=== PATIENT | female | born 1955 | race Caucasian/White ===

== ENCOUNTER 2020-06-16 08:05 | Emergency (ER) | payer SELFPAY ==
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
--- NOTE | 2020-06-16 08:09 | XR_ITS ---
WS: [id number] XR chest 1V portable [id number] REASON FOR EXAM: dyspnea/cough FINDINGS: Most recent examination for comparison 2008. Mild tortuosity of the thoracic aorta. Normal heart. Eventration of the right hemidiaphragm. Calcified granulomatous changes in both hemithoraces. Very small area of linear interstitial density in the left lung base more likely atelectasis or chron ic abnormality. XR/XR chest 1V portable [id number] IMPRESSION: No acute chest abnormality.
[2020-06-16 08:10] VITALS: RESP 20; TEMP 36.7; O2SAT 98
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
--- NOTE | 2020-06-16 08:45 | ECG_ITS ---
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 Measurements Intervals [place] Rate: 60 P: 38 AL: 154 QRS: 19 QRSD: 93 T: 11 QT: 409 QTc: 409 Interpretive Statements SINUS RHYTHM No previous ECG available for comparison Electronically Signed On 06-16-2020 20:02:14 RETAIL GIFT CARD MERCHANDISING by Nelli Flores M.D. [email or web address]
[2020-06-16 08:47] VITALS: BP 146/67; PULSE 67; RESP 18; O2SAT 97
[2020-06-16 09:02] LABS: Add Urine Microscopic? NO
[2020-06-16 09:09] LABS: Bilirubin Urine Neg (Negative); Blood Urine Neg (Negative); Glucose Urine UA Norm (Normal); Ketones Urine Negative (Negative); Leukocyte Esterase Urine Negative (Negative); Nitrate Urine Negative (Negative); Protein Urine Neg (Negative); Specific Gravity, Urine 1.015 (1.005-1.030); Urine Appearance Clear (CLEAR); Urine Color Yellow (Yellow); Urobilinogen Urine Norm (Negative); pH Urine 5 (5-7)
[2020-06-16 10:05] LABS: Basophils % 0.4 %; Eosinophils # 0.1 10^3/uL (0.0-0.8); Eosinophils % 1.3 %; Hematocrit 39.6 % (37.0-47.0); Hemoglobin 12.1 g/dL (11.5-15.3); Lymphocytes # 1.2 10^3/uL (0.8-4.8); Lymphocytes % 26.9 %; Mean Corpuscular HGB Conc 30.6 g/dL (30.0-36.0); Mean Corpuscular Hemoglobin 27.6 pg (28.0-34.0); Mean Corpuscular Volume 90.2 fL (81-99); Mean Platelet Volume 9.8 fL (7.4-10.4); Monocytes # 0.4 10^3/uL (0.2-0.9); Monocytes % 8.5 %; Neutrophils # 2.79 10^3/uL (1.8-7.7); Neutrophils % 62.7 %; Nucleated Red Blood Cells % 0 %; Platelet Count 150 10^3/cmm (130-400); Red Blood Count 4.39 10^6/uL (4.1-5.3); Red Cell Distribution Width 13.2 % (12.1-15.1); White Blood Count 4.5 10^3/uL (4.0-10.0)
[2020-06-16 10:19] LABS: Alanine Aminotransferase 18 U/L (0-33); Albumin Level 4.1 g/dL (3.5-5.2); Alkaline Phosphatase 72 IU/L (35-105); Anion Gap 12.3 (5-19); Aspartate Amino Transferase 17 U/L (0-32); Blood Urea Nitrogen 16 mg/dL (8-23); Calcium 8.9 mg/dL (8.5-10.5); Carbon Dioxide 25 mmol/L (22-29); Chloride 105 mmol/L (98-107); Creatinine Clr Calc Pharmacy 131.2714; Globulin 2.5 g/dL (1.3-4.6); Glomerular Filtration Rate 84.8 mL/min (90-130); Glucose 108 mg/dL (65-115); Osmolality Calculated 288 mOsm/kg (285-295); Potassium 4.3 mmol/L (3.5-5.1); Sodium 138 mmol/L (136-145); Total Bilirubin 0.4 mg/dL (0.15-1.2); Total Protein 6.6 g/dL (6.6-8.7)
[2020-06-16 11:21] VITALS: BP 181/112; PULSE 76; RESP 20; O2SAT 97
== END 2020-06-16 11:23 | disposition home or self-care (01) ==
PROVIDERS: Emergency Provider Family Medicine
DX: R07.89 Other chest pain (principal); V89.2XXA Person injured in unspecified motor-vehicle accident, traffic, initial encounter
CPT/HCPCS: 12345; 71045; 71250; 72040; 80053; 81003; 85025; 93005; 99281; 99283

== ENCOUNTER 2022-12-27 08:06 | Outpatient (CLI) | payer MEDICARE, SELFPAY ==
--- NOTE | 2022-12-27 08:23 | XR_ITS ---
WS: [email or web address] Exam: XR wrist LT 2V [id number] Date/Time of Exam: 12/27/2022 8:26 AM Reason For Exam: PAIN IN FINGERS OF BILATERAL HANDS No fracture or dislocation. Moderately advanced degenerative change at the CMC joint of the thumb. So ft tissues are unremarkable. XR/XR wrist LT 2V [id number] IMPRESSION: 1. No wrist fracture or other significant finding.
--- NOTE | 2022-12-27 08:23 | XR_ITS ---
WS: [email or web address] Exam: XR wrist RT 2V [id number] Date/Time of Exam: 12/27/2022 8:26 AM Reason For Exam: PAIN IN FINGERS OF BILATERAL HANDS No fracture or dislocation noted. Soft tissues are unremarkable. 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 XR/XR wrist RT 2V [id number] IMPRESSION: 1. No fracture or other significant finding.
--- NOTE | 2022-12-27 08:30 | XR_ITS ---
WS: [email or web address] Exam: XR hand LT 2V [id number] Date/Time of Exam: 12/27/2022 8:31 AM Reason For Exam: pain in left hand No fracture or dislocation. Mild degenerative changes in the IP and MP joints. Moderately advanced DJ D at the CMC joint of the thumb. Soft tissues are unremarkable. Possible old fracture deformity of th e distal index finger metacarpal. XR/XR hand LT 2V [id number] IMPRESSION: 1. Degenerative changes as noted above. 2. No acute fracture.
--- NOTE | 2022-12-27 08:30 | XR_ITS ---
WS: [email or web address] Exam: XR hand RT 2V [id number] Date/Time of Exam: 12/27/2022 8:31 AM Reason For Exam: pain in right hand No acute fracture or dislocation. Advanced joint destruction noted at the second the MP joint with ex tensive subcortical cyst formation and cortical erosions. There are also subcortical cysts with assoc iated soft tissue swelling at the PIP joint of the third finger. Mild degenerative changes in the rem aining IP joints. XR/XR hand RT 2V [id number] IMPRESSION: 1. Extensive the cortical erosions and subcortical cyst formation at the second the MP joint with almost complete destruction of the joint. There are also sub cortical cysts identified at the PIP joint of the third finger with significant soft tissue swelling. These findings are nonspecific but might indicate gouty arthritis. Additional degenerative changes in the IP joints. 2. No fracture.
== END 2022-12-27 08:07 | disposition home or self-care (01) ==
PROVIDERS: PCP Family Medicine; Visit Provider Family Medicine
DX: M19.042 Primary osteoarthritis, left hand (principal); M19.041 Primary osteoarthritis, right hand; M25.841 Other specified joint disorders, right hand; M20.092 Other deformity of left finger(s); M79.644 Pain in right finger(s); M79.645 Pain in left finger(s); M25.542 Pain in joints of left hand; M25.541 Pain in joints of right hand
CPT/HCPCS: 73100; 73120

== ENCOUNTER 2023-01-06 06:58 | Outpatient (CLI) | payer MEDICARE, MEDICAID, SELFPAY ==
--- NOTE | 2023-01-06 07:14 | CT_ITS ---
WS: [email or web address] LDCT LUNG CANCER SCREENING HISTORY: SCREENING FOR MALIGNANT NEOPLASM OF RESPIRATORY ORGANS TECHNIQUE: Axial imaging performed from the apices to 1 cm below the costophrenic angles. Coronal and sagittal reformats are submitted with axial MIP series. All CT scans at [facility] use at least one of these dose optimization techniques: automated exposure control; mA and/or kV adjustment per patient size (includes targeted exams where dose is matched to clinical indication); or iterativ e reconstruction. DLP: 107.71 mGy.cm DIvol: Mean CTDIvol: 2.60 (mGy) COMPARISON: 06/16/2020 Diagnostic quality: Satisfactory Lungs: Mild pulmonary hyperexpansion from emphysema. Groundglass nodule with irregular borders identi fied in the LEFT upper lobe measures 1.7 x 2.0 cm and extends over a length of 2.4 cm. This area of g roundglass attenuation was also on the study from 2019 but very small at that time and nonspecific. T here are a few additional scattered similar areas of groundglass attenuation bilaterally. No mass or nodule. Heart: Normal size heart with no pericardial effusion.. Other findings: Mild atherosclerosis aorta. No mediastinal or hilar adenopathy identified. Minimal co ronary artery calcification. Small hiatal hernia. Hepatic steatosis. CT/CT lung screening [id number] IMPRESSION: LUNG-RADS: 3-Probably Benign FOLLOW UP: 6 Month LDCT OTHER FINDINGS (S MODIFIER): None. Recommend 6 month follow-up of the groundglass nodule LEFT upper lobe. Typicall y a groundglass nodule less than 3 cm would be managed with a 12 month follow-u p. As this nodule has increased in size since 2019, a shorter interval follow- up of 6 months is recommended. Suspicious for low-grade neoplasm.
--- NOTE | 2023-01-06 07:29 | MM_ITS ---
WS: [email or web address] Bilateral screening 3D tomosynthesis digital mammogram, 01/06/2023 Clinical Data: SCREENING Comparison: None. Findings: The breast parenchymal pattern shows fat replacement. No spiculated masses or clustered calcification s are seen. There are no secondary signs of carcinoma. There are mole markers on the right breast. Th ere are small lymph nodes in both axilla. MM/[place] [id number] Impression: 1. Negative bilateral mammogram with no prior exam for review. 2. Recommend annual screening mammograms. BIRADS: 1-Negative FOLLOW UP: 1 Year Follow-up The CAD sample checker was used.
== END 2023-01-06 06:59 | disposition home or self-care (01) ==
PROVIDERS: PCP Family Medicine; Visit Provider Family Medicine
DX: Z12.31 Encounter for screening mammogram for malignant neoplasm of breast (principal); Z12.2 Encounter for screening for malignant neoplasm of respiratory organs; Z87.891 Personal history of nicotine dependence
CPT/HCPCS: 71271; 77063; 77067

== ENCOUNTER 2023-01-13 11:57 | Outpatient (CLI) | payer MEDICARE, MEDICAID, SELFPAY ==
--- NOTE | 2023-01-13 12:10 | XRR_ITS ---
PROCEDURE INFORMATION: Exam: XR Right Knee Exam date and time: 01/13/2023 12:27 PM Age: 67 years old Clinical indication: Pain; Knee; Bilateral; Additional info: Pain in right knee.No history of trauma or recent surgery is provided. TECHNIQUE: Imaging protocol: Radiologic exam of the right knee. 3image(s) are provided. Views: 3 views. COMPARISON: No relevant prior studies available of the right knee. Left knee report same day. FINDINGS: Bones/joints: Osseous alignment is maintained.No displaced fracture or dislocation is appreciated. There is a small to moderate amount of joint fluid present. There is some spurring of the patellar level. There is some multi compartmental spurring and narrowing demonstrated with patellofemoral and medial predominance. Soft tissues: No radiopaque foreign body or subcutaneous emphysema is appreciated. There is slight prominence of the soft tissues overall. XR/XR knee RT 3V* [id number] IMPRESSION: 1. Osseous alignment is maintained with some chronic multi compartmental degeneration present.No fracture or dislocation is appreciated. 2. There is slight soft tissue swelling and small to moderate amount of joint fluid present.
--- NOTE | 2023-01-13 12:10 | XR_ITS ---
WS: [email or web address] Left knee, 3 views, 01/13/2023 Clinical Data: PAIN IN LEFT KNEE Comparison: None. Findings: No fractures or dislocations are seen. There is medial joint compartment narrowing with spurs of the medial femoral condyle and medial tibial plateau.. The patella is intact with no spurring. The soft t issues are unremarkable. XR/XR knee LT 3V* [id number] Impression: Minimal medial joint compartment narrowing of the left knee Kellgren-Karan Classification: grade 1 (doubtful): doubtful joint space narr owing and possible osteophytic lipping
== END 2023-01-13 11:58 | disposition home or self-care (01) ==
LOC: RAD 11:59
PROVIDERS: PCP Family Medicine; Visit Provider Family Medicine
DX: M17.11 Unilateral primary osteoarthritis, right knee (principal); M79.89 Other specified soft tissue disorders; M25.562 Pain in left knee
CPT/HCPCS: 73562

== ENCOUNTER 2023-01-31 06:00 | Outpatient (CLI) | payer MEDICARE, MEDICAID, SELFPAY | END 2023-01-31 06:01 | disposition home or self-care (01) | LOC: SPT 02-15 09:14 | PROVIDERS: PCP Family Medicine; Visit Provider Student in an Organized Health Care Education/Training Program | DX: Z46.89 Encounter for fitting and adjustment of other specified devices (principal); M17.11 Unilateral primary osteoarthritis, right knee; M25.561 Pain in right knee | CPT/HCPCS: 97760; L1852 ==

== ENCOUNTER → 2023-02-14 11:04 | Outpatient (BNVA) | payer MEDICARE, MEDICAID, SELFPAY | PROVIDERS: PCP Family Medicine; Referring Provider Family Medicine; Visit Provider Student in an Organized Health Care Education/Training Program | DX: M17.11 Unilateral primary osteoarthritis, right knee | CPT/HCPCS: 73560; 73565; 99203 ==

== ENCOUNTER 2023-07-10 07:45 | Outpatient (CLI) | payer MEDICARE, MEDICAID, SELFPAY ==
--- NOTE | 2023-07-10 07:53 | CT_ITS ---
WS: [email or web address] CT CHEST TECHNIQUE: Contrast enhanced CT of the chest with coronal and sagittal reformatted images. CLINICAL INFORMATION: ABNORMAL FINDINGS ON DIAGNOSTIC IMAGING OF LUNG COMPARISON: CT 01/06/2023 and 06/16/2020 DLP: 571.[address] scans at [facility] use at least one of these dose optimization techniques: automated e xposure control; mA and/or kV adjustment per patient size (includes targeted exams where dose is matc hed to clinical indication); or iterative reconstruction. FINDINGS: Previously described 1.7 x 1.9 cm hazy groundglass opacity in the LEFT upper lobe is unchanged since 01/06/2023. Recommend continued surveillance with 6-month follow-up. Additional previously described subcentimeter nodules and small hazy opacities are unchanged. No foca l consolidation or pleural fluid. Proximal main pulmonary arteries are normal. Normal caliber thoraci c aorta. Aortic calcification. Stable LEFT adrenal adenoma measuring 2.2 cm. Tiny RIGHT adrenal adeno ma. Partially visualized hepatomegaly and splenomegaly. Spleen measures 15.1 cm in [id number] signi ficantly enlarged. Recommend clinical correlation. No mediastinal or hilar lymphadenopathy. No axillary lymphadenopathy. Moderate chronic emphysematous changes. IMPRESSION: 1. Previously described 1.7 x 1.9 cm hazy groundglass opacity in the LEFT upper lobe is unchanged s zee 01/06/2023. Recommend continued surveillance with 6-month follow-up. 2. Prominent splenomegaly. Recommend clinical correlation. 3. No other significant changes compared to previous.
[2023-07-10] MEDS: iohexol 350 mg/mL 100 mL Btl IV (08:54)
[2023-07-10 09:06] LABS: Blood Urea Nitrogen 15 mg/dL (8-23)
== END 2023-07-10 07:46 | disposition home or self-care (01) ==
LOC: RAD 07:46
PROVIDERS: PCP Family Medicine; Visit Provider Nurse Practitioner Family
DX: R91.8 Other nonspecific abnormal finding of lung field (principal); R16.1 Splenomegaly, not elsewhere classified
CPT/HCPCS: 71260; 82565; 84520; Q9967

== ENCOUNTER → 2023-07-18 08:43 | Outpatient (BNVA) | payer MEDICARE, MEDICAID, SELFPAY | PROVIDERS: PCP Family Medicine; Visit Provider Internal Medicine Rheumatology | DX: M05.79 Rheumatoid arthritis with rheumatoid factor of multiple sites without organ or systems involvement (principal); Z79.899 Other long term (current) drug therapy; Z71.85 Encounter for immunization safety counseling; M15.9 Polyosteoarthritis, unspecified | CPT/HCPCS: 99204 ==

== ENCOUNTER 2023-08-01 06:01 | Outpatient (CLI) | payer MEDICARE, MEDICAID, SELFPAY ==
--- NOTE | 2023-08-01 | US_ITS ---
WS: [email or web address] Complete ABDOMINAL ULTRASOUND HISTORY: Hepatosplenomegaly. COMPARISON: None available. Liver: 22.1 cm in length. Moderately enlarged liver with mild coarse echotexture. No mass or bile hollie t dilatation. Portal Vein: Normal hepatopetal flow with monophasic waveform. Gallbladder: Normally distended gallbladder with no stones or wall thickening. CBD: 0.3 cm Pancreas: Partially obscured. The entire head and distal tail are not visualized. Right kidney: 12.3 cm x 4.0 x 5.3 cm. Cortex:1.2 cm. Normal size and echogenicity. No hydronephrosis or mass. Left kidney: 11.3 cm x 5.0 cm x 3.7 cm. Cortex: 1.2 cm. Normal size and echogenicity. No hydronephrosis or mass. Spleen: 12.4 cm in length. Top normal size. Aorta and IVC: Unremarkable abdominal aorta and IVC. Impression: 1. Mildly contracted gallbladder. May be due to nonfasting state. No stones are identified and no Mu rphy's sign. 2. Moderate hepatomegaly with mild steatosis. 3. Spleen is top normal size. No renal obstruction.
== END 2023-08-01 06:02 | disposition home or self-care (01) ==
LOC: RAD 06:02
PROVIDERS: PCP Family Medicine; Visit Provider Family Medicine
DX: R16.2 Hepatomegaly with splenomegaly, not elsewhere classified (principal); K82.9 Disease of gallbladder, unspecified; K76.0 Fatty (change of) liver, not elsewhere classified
CPT/HCPCS: 76700

== ENCOUNTER 2023-08-01 06:29 | Outpatient (CLI) | payer MEDICARE, MEDICAID, SELFPAY ==
[2023-08-01 06:44] LABS: Basophils % 0.2 %; Eosinophils # 0.1 10^3/uL (0.0-0.8); Eosinophils % 0.7 %; Hematocrit 41.1 % (36-47); Lymphocytes # 2.1 10^3/uL (0.8-4.8); Mean Corpuscular HGB Conc 30.2 g/dL (30-55); Mean Corpuscular Hemoglobin 25.5 pg (27-33); Mean Corpuscular Volume 84.6 fl (85-98); Mean Platelet Volume 9.9 fL (7.4-10.4); Monocytes # 0.8 10^3/uL (0.2-0.9); Monocytes % 7.5 %; Neutrophils # 7.38 10^3/uL (1.8-7.7); Neutrophils % 71.1 %; Nucleated Red Blood Cells % 0 %; Platelet Count 200 10^3/cmm (157-399); Red Blood Count 4.86 10^6/uL (3.85-5.65); Red Cell Distribution Width 17.3 % (12.1-15.1); White Blood Count 10.38 10^3/uL (3.29-11.43)
[2023-08-01 07:07] LABS: Alanine Aminotransferase 20 U/L (0-33); Albumin Level 3.8 g/dL (3.5-5.2); Alkaline Phosphatase 67 U/L (35-105); Aspartate Amino Transferase 15 U/L (0-32); C Reactive Protein 5.3 mg/L (0.0-4.9); Globulin 2.9 g/dL (1.3-4.6); Total Bilirubin 0.2 mg/dL (0.15-1.2); Total Protein 6.7 g/dL (6.6-8.7)
== END 2023-08-01 06:30 | disposition home or self-care (01) ==
LOC: LAB 06:30
PROVIDERS: PCP Family Medicine; Visit Provider Internal Medicine Rheumatology
DX: Z79.899 Other long term (current) drug therapy (principal); M05.79 Rheumatoid arthritis with rheumatoid factor of multiple sites without organ or systems involvement
CPT/HCPCS: 36415; 80076; 82565; 85025; 86140

== ENCOUNTER 2023-09-01 06:21 | Outpatient (CLI) | payer MEDICARE, MEDICAID, SELFPAY ==
[2023-09-01 07:06] LABS: Basophils % 0.5 %; Eosinophils # 0.1 10^3/uL (0.0-0.8); Eosinophils % 1.1 %; Hematocrit 43.6 % (36-47); Lymphocytes # 1.1 10^3/uL (0.8-4.8); Lymphocytes % 19.7 %; Mean Corpuscular HGB Conc 30.7 g/dL (30-55); Mean Corpuscular Hemoglobin 26.5 pg (27-33); Mean Corpuscular Volume 86.2 fl (85-98); Mean Platelet Volume 9.9 fL (7.4-10.4); Monocytes # 0.8 10^3/uL (0.2-0.9); Monocytes % 13.7 %; Neutrophils # 3.59 10^3/uL (1.8-7.7); Neutrophils % 64.8 %; Nucleated Red Blood Cells % 0 %; Platelet Count 182 10^3/cmm (157-399); Red Blood Count 5.06 10^6/uL (3.85-5.65); Red Cell Distribution Width 15.9 % (12.1-15.1); White Blood Count 5.54 10^3/uL (3.29-11.43)
[2023-09-01 07:15] LABS: Alanine Aminotransferase 16 U/L (0-33); Alkaline Phosphatase 73 U/L (35-105); Aspartate Amino Transferase 17 U/L (0-32); C Reactive Protein 3.2 mg/L (0.0-4.9); Globulin 2.6 g/dL (1.3-4.6); Glomerular Filtration Rate 100.3 mL/min (90-130); Total Bilirubin 0.4 mg/dL (0.15-1.2); Total Protein 6.6 g/dL (6.6-8.7)
[2023-09-01 08:43] LABS: Hepatitis B Core AB, Total Reactive (Nonreactive); Hepatitis B Surface Antigen Non-Reactive (Nonreactive); Hepatitis C Virus Antibody Non-Reactive (Nonreactive)
[2023-09-04 14:34] LABS: Cyclic Citrullinated Peptide 46 UNITS
[2023-09-05 13:24] LABS: Quantiferon Mitogen 8.61 IU/mL; Quantiferon Nil 0.04 IU/mL; Quantiferon Plus TB2 0.04 IU/mL; Quantiferon TB Gold NEGATIVE (NEGATIVE)
== END 2023-09-01 06:22 | disposition home or self-care (01) ==
LOC: LAB 06:22
PROVIDERS: PCP Family Medicine; Visit Provider Internal Medicine Rheumatology
DX: M05.79 Rheumatoid arthritis with rheumatoid factor of multiple sites without organ or systems involvement (principal); Z79.899 Other long term (current) drug therapy
CPT/HCPCS: 36415; 80076; 82565; 85025; 86140; 86200; 86480; 86704; 86803; 87340

== ENCOUNTER 2023-10-05 06:21 | Outpatient (CLI) | payer MEDICARE, MEDICAID, SELFPAY ==
[2023-10-05 06:51] LABS: Basophils % 0.3 %; Eosinophils # 0.1 10^3/uL (0.0-0.8); Eosinophils % 2.3 %; Hematocrit 41.6 % (36-47); Lymphocytes # 1.1 10^3/uL (0.8-4.8); Lymphocytes % 19.2 %; Mean Corpuscular HGB Conc 31.3 g/dL (30-55); Mean Corpuscular Volume 86.5 fl (85-98); Mean Platelet Volume 9.4 fL (7.4-10.4); Monocytes # 0.6 10^3/uL (0.2-0.9); Monocytes % 10.8 %; Neutrophils # 3.85 10^3/uL (1.8-7.7); Neutrophils % 67.1 %; Nucleated Red Blood Cells % 0 %; Platelet Count 162 10^3/cmm (157-399); Red Blood Count 4.81 10^6/uL (3.85-5.65); Red Cell Distribution Width 15.8 % (12.1-15.1); White Blood Count 5.74 10^3/uL (3.29-11.43)
[2023-10-05 07:11] LABS: Alanine Aminotransferase 19 U/L (0-33); Alkaline Phosphatase 83 U/L (35-105); Aspartate Amino Transferase 18 U/L (0-32); C Reactive Protein 5.7 mg/L (0.0-4.9); Globulin 2.4 g/dL (1.3-4.6); Glomerular Filtration Rate 83.7 mL/min (90-130); Total Bilirubin 0.3 mg/dL (0.15-1.2); Total Protein 6.4 g/dL (6.6-8.7)
[2023-10-10 14:58] LABS: Hepatitis B Virus DNA NOT DETECTED (NOT DETECTED); Hepatitis B Virus DNA PCR NOT DETECTED Log IU/mL (NOT DETECTED)
== END 2023-10-05 06:22 | disposition home or self-care (01) ==
PROVIDERS: PCP Family Medicine; Visit Provider Internal Medicine Rheumatology
DX: M05.79 Rheumatoid arthritis with rheumatoid factor of multiple sites without organ or systems involvement (principal); R76.8 Other specified abnormal immunological findings in serum; Z79.899 Other long term (current) drug therapy
CPT/HCPCS: 36415; 80076; 82565; 85025; 86140; 87517

== ENCOUNTER 2023-10-16 12:47 | Outpatient (CLI) | payer MEDICARE, MEDICAID, SELFPAY ==
--- NOTE | 2023-10-16 12:51 | XR_ITS ---
WS: [email or web address] SCREENING DEXA SCAN [employer] CLINICAL INFORMATION: SCREENING FOR OSTEOPOROSIS COMPARISON: None. FINDINGS: The L1-L4 bone mineral density measures 1.05. This corresponds to a T score score of -1.2 and Z score of -0.8. Left femoral neck bone mineral density measures 0.902 g/cm2. This corresponds to a T score of -0.8 an d Z score of -0.4. Right femoral neck bone mineral density measures 0.877 g/cm2. This corresponds to a T score -1.0of an d Z score of -0.6. Mean femoral neck bone mineral density measures 0.890 g/cm2. This corresponds to a T score of -0.9 an d Z score of -0.5. IMPRESSION: Osteopenia lumbar spine. Normal bone mineralization approaching osteopenia femoral necks. Patient's FRAX calculated 10 year probability for major osteoporotic fracture is 9.6% and osteoporoti c hip fracture is 0.7%.
== END 2023-10-16 12:48 | disposition home or self-care (01) ==
LOC: RAD 12:49
PROVIDERS: PCP Family Medicine; Visit Provider Family Medicine
DX: Z78.0 Asymptomatic menopausal state (principal); Z13.820 Encounter for screening for osteoporosis; M85.88 Other specified disorders of bone density and structure, other site
CPT/HCPCS: 77080

== ENCOUNTER → 2023-10-26 09:13 | Outpatient (BNVA) | payer MEDICARE, MEDICAID, SELFPAY | PROVIDERS: PCP Family Medicine; Visit Provider Internal Medicine Rheumatology | DX: Z79.899 Other long term (current) drug therapy (principal); M05.79 Rheumatoid arthritis with rheumatoid factor of multiple sites without organ or systems involvement; Z71.85 Encounter for immunization safety counseling; M15.9 Polyosteoarthritis, unspecified | CPT/HCPCS: 99214 ==

== ENCOUNTER 2023-12-01 06:33 | Outpatient (CLI) | payer MEDICARE, MEDICAID, SELFPAY ==
[2023-12-01 06:56] LABS: Basophils % 0.5 %; Eosinophils # 0.1 10^3/uL (0.0-0.8); Eosinophils % 1.3 %; Hematocrit 39.5 % (36-47); Lymphocytes # 1.1 10^3/uL (0.8-4.8); Lymphocytes % 19.5 %; Mean Corpuscular HGB Conc 31.6 g/dL (30-55); Mean Corpuscular Hemoglobin 28.7 pg (27-33); Mean Corpuscular Volume 90.6 fl (85-98); Mean Platelet Volume 9.4 fL (7.4-10.4); Monocytes # 0.3 10^3/uL (0.2-0.9); Neutrophils # 3.99 10^3/uL (1.8-7.7); Neutrophils % 72.5 %; Nucleated Red Blood Cells % 0 %; Platelet Count 158 10^3/cmm (157-399); Red Blood Count 4.36 10^6/uL (3.85-5.65); Red Cell Distribution Width 16.6 % (12.1-15.1)
[2023-12-01 07:06] LABS: Alanine Aminotransferase 35 U/L (0-33); Albumin Level 4.1 g/dL (3.5-5.2); Alkaline Phosphatase 78 U/L (35-105); Aspartate Amino Transferase 29 U/L (0-32); C Reactive Protein 15.9 mg/L (0.0-4.9); Globulin 2.8 g/dL (1.3-4.6); Glomerular Filtration Rate 83.7 mL/min (90-130); Total Bilirubin 0.7 mg/dL (0.15-1.2); Total Protein 6.9 g/dL (6.6-8.7)
== END 2023-12-01 06:34 | disposition home or self-care (01) ==
LOC: LAB 06:34
PROVIDERS: PCP Family Medicine; Visit Provider Internal Medicine Rheumatology
DX: Z79.899 Other long term (current) drug therapy (principal); M05.79 Rheumatoid arthritis with rheumatoid factor of multiple sites without organ or systems involvement
CPT/HCPCS: 36415; 80076; 82565; 85025; 86140

== ENCOUNTER 2024-01-15 14:58 | Outpatient (CLI) | payer MEDICARE, MEDICAID, SELFPAY ==
--- NOTE | 2024-01-15 15:02 | CT_ITS ---
WS: [email or web address] CT chest wo con [id number] HISTORY: LUNG NODULE TECHNIQUE: Axial imaging performed through the thorax. Coronal and sagittal reformats are submitted. All CT scans at [facility] use at least one of these dose optimization techniques: automated exposure control; mA and/or kV adjustment per patient size (includes targeted exams where dose is mat ched to clinical indication); or iterative reconstruction. CONTRAST: None DLP: 568.57 mGy.cm COMPARISON: 01/06/2023, 07/10/2023 Lungs and central airway: Reidentified is a groundglass nodule measuring 1.6 x 1.9 cm in the posterio r LEFT upper lobe which is increased in size since 2019 but stable since the most recent studies. The re are a few additional very small, subcentimeter areas of hazy groundglass attenuation throughout th e RIGHT lung which are stable. There are a few scattered granulomata. Pleura: Normal. No pleural effusion. Heart and pericardium: Normal size heart with no pericardial effusion. Mediastinum and yong: No mediastinum or hilar adenopathy. Vessels: Mild atherosclerosis aorta. Normal size pulmonary artery. Chest wall and lower neck: No soft tissue masses. Upper abdomen: Long-term stability well circumscribed 2.7 x 2.3 cm mass associated with the LEFT adre nal gland. Spleen is not included in its entirety. Osseous structures: Increase in thoracic kyphosis. CT/CT chest wo con [id number] IMPRESSION: 1. No interval change in the groundglass nodule LEFT upper lobe since 01/06/2023 . Recommend continued close follow-up. Low-grade neoplasm needs to be considere d. Recommend follow-up noncontrast chest CT in 12 months. 2. Reidentified LEFT adrenal mass, unchanged since 2019. 3. Additional very small subcentimeter areas of groundglass attenuation throug hout the RIGHT lung can also be reevaluated in 12 months.
== END 2024-01-15 14:59 | disposition home or self-care (01) ==
LOC: RAD 14:59
PROVIDERS: PCP Family Medicine; Visit Provider Family Medicine
DX: R91.8 Other nonspecific abnormal finding of lung field (principal); D35.00 Benign neoplasm of unspecified adrenal gland; M40.204 Unspecified kyphosis, thoracic region
CPT/HCPCS: 71250

== ENCOUNTER 2024-03-06 06:18 | Outpatient (CLI) | payer MEDICARE, MEDICAID, SELFPAY ==
[2024-03-06 06:43] LABS: Basophils # 0.1 10^3/uL (0.0-0.1); Eosinophils # 0.1 10^3/uL (0.0-0.8); Eosinophils % 2.5 %; Hematocrit 35.5 % (36-47); Lymphocytes # 1.5 10^3/uL (0.8-4.8); Lymphocytes % 29.1 %; Mean Corpuscular Hemoglobin 28.1 pg (27-33); Mean Corpuscular Volume 90.8 fl (85-98); Monocytes # 0.8 10^3/uL (0.2-0.9); Monocytes % 16.2 %; Neutrophils % 50.8 %; Nucleated Red Blood Cells % 0 %; Platelet Count 131 10^3/cmm (157-399); Red Blood Count 3.91 10^6/uL (3.85-5.65); Red Cell Distribution Width 16.5 % (12.1-15.1); White Blood Count 5.12 10^3/uL (3.29-11.43)
[2024-03-06 07:03] LABS: Alanine Aminotransferase 15 U/L (0-33); Alkaline Phosphatase 88 U/L (35-105); Aspartate Amino Transferase 15 U/L (0-32); C Reactive Protein 25.9 mg/L (0.0-4.9); Globulin 2.1 g/dL (1.3-4.6); Glomerular Filtration Rate 71.8 mL/min (90-130); Total Bilirubin 0.3 mg/dL (0.15-1.2); Total Protein 6.1 g/dL (6.6-8.7)
== END 2024-03-06 06:19 | disposition home or self-care (01) ==
PROVIDERS: PCP Family Medicine; Visit Provider Internal Medicine Rheumatology
DX: Z79.899 Other long term (current) drug therapy (principal); M05.79 Rheumatoid arthritis with rheumatoid factor of multiple sites without organ or systems involvement
CPT/HCPCS: 36415; 80076; 82565; 85025; 86140

== ENCOUNTER → 2024-03-14 09:10 | Outpatient (BNVA) | payer MEDICARE, MEDICAID, SELFPAY | PROVIDERS: PCP Family Medicine; Visit Provider Internal Medicine Rheumatology | DX: M05.79 Rheumatoid arthritis with rheumatoid factor of multiple sites without organ or systems involvement (principal); Z79.899 Other long term (current) drug therapy; Z71.85 Encounter for immunization safety counseling; M15.9 Polyosteoarthritis, unspecified; Z11.1 Encounter for screening for respiratory tuberculosis; Z11.59 Encounter for screening for other viral diseases | CPT/HCPCS: 36415; 85025; 99214 ==

== ENCOUNTER 2024-03-19 08:51 | Outpatient (CLI) | payer MEDICARE, MEDICAID, SELFPAY | END 2024-03-19 08:52 | disposition home or self-care (01) | PROVIDERS: PCP Family Medicine; Visit Provider Internal Medicine Rheumatology | DX: K92.1 Melena (principal) | CPT/HCPCS: 82274 ==

== ENCOUNTER 2024-05-28 06:35 | Outpatient (CLI) | payer MEDICARE, SELFPAY ==
[2024-05-28 07:35] LABS: Basophils % 0.9 %; Eosinophils # 0.1 10^3/uL (0.0-0.8); Eosinophils % 3.2 %; Hematocrit 32.5 % (36-47); Lymphocytes % 22.2 %; Mean Corpuscular HGB Conc 30.8 g/dL (30-55); Mean Corpuscular Hemoglobin 25.4 pg (27-33); Mean Corpuscular Volume 82.7 fl (85-98); Mean Platelet Volume 9.8 fL (7.4-10.4); Monocytes # 0.8 10^3/uL (0.2-0.9); Monocytes % 17.4 %; Neutrophils # 2.44 10^3/uL (1.8-7.7); Neutrophils % 55.8 %; Nucleated Red Blood Cells % 0 %; Platelet Count 144 10^3/cmm (157-399); Red Blood Count 3.93 10^6/uL (3.85-5.65); Red Cell Distribution Width 18.4 % (12.1-15.1); White Blood Count 4.37 10^3/uL (3.29-11.43)
[2024-05-28 07:53] LABS: Alanine Aminotransferase 20 U/L (0-33); Albumin Level 3.6 g/dL (3.5-5.2); Alkaline Phosphatase 74 U/L (35-105); Aspartate Amino Transferase 22 U/L (0-32); C Reactive Protein 30.4 mg/L (0.0-4.9); Globulin 2.4 g/dL (1.3-4.6); Glomerular Filtration Rate 83.7 mL/min (90-130); Total Bilirubin 0.4 mg/dL (0.15-1.2)
[2024-05-28 07:57] LABS: Erythrocyte Sedimentation Rate 33 mm/hr (0-15)
== END 2024-05-28 06:36 | disposition home or self-care (01) ==
LOC: LAB 06:38
PROVIDERS: Internal Medicine Rheumatology; PCP Family Medicine; Visit Provider Family Medicine
DX: M05.79 Rheumatoid arthritis with rheumatoid factor of multiple sites without organ or systems involvement (principal); Z79.899 Other long term (current) drug therapy
CPT/HCPCS: 36415; 80076; 82565; 85025; 85651; 86140

== ENCOUNTER 2024-07-24 07:50 | Outpatient (CLI) | payer MEDICARE, MEDICAID, SELFPAY ==
--- NOTE | 2024-07-24 07:56 | MM_ITS ---
WS: [email or web address] BILATERAL SCREENING DIGITAL TOMOSYNTHESIS MAMMOGRAM WITH CAD HISTORY: SCREENING COMPARISON: 01/06/2023 Bilateral CC and MLO views with tomosynthesis and synthetic mammography submitted. Computer aided det ection analyzed. Breast composition: The breasts are almost entirely fatty. No suspicious masses, microcalcifications or architectural distortion. MM/MM scr BI tomosynthesis [id number] IMPRESSION: BI-RADS: 1 - Negative. FOLLOW UP: 1 Year Follow-up
== END 2024-07-24 07:51 | disposition home or self-care (01) ==
LOC: RAD 07:53
PROVIDERS: PCP Family Medicine; Visit Provider Family Medicine
DX: Z12.31 Encounter for screening mammogram for malignant neoplasm of breast (principal); R92.313 Mammographic fatty tissue density, bilateral breasts
CPT/HCPCS: 77063; 77067

== ENCOUNTER → 2024-07-25 10:25 | Outpatient (BNVA) | payer MEDICARE, MEDICAID, SELFPAY | PROVIDERS: PCP Family Medicine; Visit Provider Internal Medicine Rheumatology | DX: M05.79 Rheumatoid arthritis with rheumatoid factor of multiple sites without organ or systems involvement (principal); Z79.899 Other long term (current) drug therapy; Z71.85 Encounter for immunization safety counseling; M15.9 Polyosteoarthritis, unspecified | CPT/HCPCS: 36415; 85025; 99214 ==

== ENCOUNTER 2024-08-02 16:07 | Emergency (ER) | payer MEDICARE, MEDICAID, SELFPAY ==
--- NOTE | 2024-08-02 16:12 | USR_ITS ---
PROCEDURE INFORMATION: Exam: US Abdomen, Limited; Right Upper Quadrant Exam date and time: 08/02/2024 4:39 PM Age: 68 years old Clinical indication: Abdominal pain; Generalized; Additional info: Gallbladder, liver, ruq pain, probable cirrhosis TECHNIQUE: Imaging protocol: Real time ultrasound of the abdomen with image documentation. Limited exam focused on the right upper quadrant. COMPARISON: US abdomen complete* [id number] 08/01/2023 6:19 AM FINDINGS: Liver: Interval development of a nodular contour of the liver with increasingly heterogenous echotexture throughout the liver, suspicious for cirrhotic changes. Echotexture may be due to fatty infiltration and/or hepatocellular disease. Underlying hepatic lesions can not be ruled out. Marked hepatomegaly, the liver has increased in size and now measures 30.1 cm in length, previously measured 22.1 cm. Gallbladder: The gallbladder is contracted. This may be due to a postprandial state. No pericholecystic fluid. Biliary ducts: No biliary ductal dilatation. Pancreas: The pancreas was not visualized due to overlying bowel gas. Right kidney: The right kidney is unremarkable. Portal venous: Hepatopetal flow in the portal vein. Portal vein velocity measures 12.3 cm however, which is below normal. Intraperitoneal space: No ascites. US/US abdomen limited [id number] IMPRESSION: 1. Marked hepatomegaly, the liver has increased in size. Interval development of a nodular contour of the liver with increasingly heterogenous echotexture throughout the liver, suspicious for cirrhotic changes. Echotexture may be due to fatty infiltration and/or hepatocellular disease. Underlying hepatic lesions can not be ruled out. Recommend clinical correlation. 2. Hepatopetal flow in the portal vein. Portal vein velocity measures 12.3 cm however, which is below normal. 3. The pancreas was not visualized due to overlying bowel gas.
[2024-08-02 16:13] VITALS: BP 156/85; PULSE 95; RESP 18; TEMP 36.4; O2SAT 94; BMI 27.3
--- NOTE | 2024-08-02 16:13 | XRR_ITS ---
PROCEDURE INFORMATION: Exam: XR Chest Exam date and time: 08/02/2024 4:21 PM Age: 68 years old Clinical indication: Shortness of breath; SOB; Diapheretic TECHNIQUE: Imaging protocol: Radiologic exam of the chest. Views: 1 view. COMPARISON: CT chest con [id number] 01/15/2024 3:06 PM FINDINGS: Lungs: Interval development of mild elevation of the right hemidiaphragm. Interval development of a right suprahilar mass with associated postobstructive atelectasis/pneumonia in the right upper lobe. Stable small granuloma in the left upper lobe. Pleural spaces: No pleural effusion. No pneumothorax. Heart/Mediastinum: The cardiac silhouette and mediastinal contours are unremarkable. Bones/joints: Unremarkable for age. XR/XR chest 1V portable [id number] IMPRESSION: 1. Interval development of a right suprahilar mass with associated postobstructive atelectasis/pneumonia in the right upper lobe. CT scan of the chest with contrast is recommended for further evaluation. 2. Incidental/nonacute findings are listed in the report. COMMENTS: Urgent results were discussed with DARYA Castelan on 08/02/2024 at 5:03 PM THERAPY TECH.
--- NOTE | 2024-08-02 16:14 | ECG_ITS ---
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 Measurements Intervals [place] Rate: 95 P: 41 WA: 112 QRS: 38 QRSD: 93 T: 62 QT: 349 QTc: 439 Interpretive Statements SINUS RHYTHM WITH SHORT WA INTERVAL Compared to ECG 06/16/2020 08:17:52 Short WA interval now present Electronically Signed On 08-03-2024 13:18:21 SENIOR QUALITY ENGINEER by Beau Mcdonald M.D. [email or web address]
--- NOTE | 2024-08-02 16:18 | ED_ITS ---
HPI - Abdominal Pain 2 General: Chief Complaint: Abdominal Pain Stated Complaint: abdominal pain w/distention Time Seen by Provider: 08/02/24 16:08 History of Present Illness: 68-year-old female with a history of hyp ertension, diabetes and obesity who presents emergency room by ambulance with worsening shortness of breath, abdominal pain and swelling. She is noticed some swelling in her abdomen for some time now. She said she felt a pop in her right upper quadrant the other day and that is when the pain started and breathing got worse. She appears jaundiced on exam. Abdomen is very distended. She says she feels short of breath. She says this is all new. No known liver illness. Related Data Home Medications Medication Instructions Recorded Confirmed acetaminophen 650 mg 650 mg PO Q12H 02/14/23 08/02/24 tablet,extended release (Tylenol Arthritis Pain) marijuana See Rx Instructions .Route .COMPLEX 02/14/23 08/02/24 melatonin 12 mg tablet 12 mg PO QPM 02/14/23 08/02/24 vitamin with calcium 1 tab PO DAILY 08/02/24 08/02/24 no.72-iron 27 mg-folic acid 1 mg tablet ( Vitamins Plus Low Iron) Previous Rx's Medication Instructions Recorded director of guidance in public [employer] brace right #1 ea 02/14/23 folic acid 1 mg tablet 1 mg PO DAILY #90 tabs 07/25/24 methotrexate sodium 2.5 mg tablet See Rx Instructions PO Q7D #150 07/25/24 tabs prednisone 20 mg tablet See Rx Instructions .Route 07/25/24 .COMPLEX #30 tabs Allergies Allergy/AdvReac Type Severity Reaction Status Date / Time sulfasalazine Allergy Unknown lower Verified 07/25/24 10:40 extremity weakness Review of Systems 2 Narrative: Constitutional symptoms: Negative except as documented in HPI. Skin symptoms: Negative except as documented in HPI. Eye symptoms: Negative except as documented in HPI. ENMT symptoms: Negative except as documented in HPI. Respiratory symptoms: Negative except as documented in HPI. Cardiovascular symptoms: Negative except as documented in HPI. Gastrointestinal symptoms: Negative except as documented in HPI. Genitourinary symptoms: Negative except as documented in HPI. Musculoskeletal symptoms: Negative except as documented in HPI. Neurologic symptoms: Negative except as documented in HPI. Psychiatric symptoms: Negative except as documented in HPI. Endocrine symptoms: Negative except as documented in HPI. PFSH ED 2 PFSH: Medical History Essential hypertension controlled now no meds Osteoarthritis, generalized Immunization counseling High risk medication use Seropositive rheumatoid arthritis of multiple sites Surgical History H/O: hysterectomy Family History Other CAD (coronary artery disease) Cancer Diabetes Heart disease Hyperlipidemia Hypertension Lupus (systemic lupus erythematosus) Denies family history of Rheumatoid arthritis Chronic kidney disease (CKD) Social History Smoking and tobacco/nicotine status: former use of tobacco/nicotine Alcohol intake: never Physical Exam 2 Narrative: EXAM NARRATIVE: General: Alert, no acute distress. Skin: Warm, dry. Head: Normocephalic, appears jaundice Neck: Supple, trachea midline. Eye: Extraocular movements are intact. Ears, nose, mouth and throat: mucosa moist. Cardiovascular: Regular, Normal peripheral perfusion. Respiratory: Lungs are clear to auscultation, respirations are non-labored, breath sounds are equal, Symmetrical chest wall expansion. Gastrointestinal: Abdomen is fairly tight, very distended, diffusely tender but more in the right upper quadrant Musculoskeletal: Normal ROM, no deformity. Neurological: Alert and oriented, No focal neurological deficit observed. Psychiatric: Cooperative, appropriate mood & affect. Course 2 Vital Signs: Vital signs: Vital Signs Temperature 97.6 F 08/02/24 16:13 Pulse Rate 92 08/02/24 19:09 Respiratory Rate 16 08/02/24 19:09 Blood Pressure 139/70 08/02/24 19:09 Pulse Oximetry 93 08/02/24 19:09 Oxygen Delivery Me thod Room Air 08/02/24 16:13 MDM - Abdominal Pain Medical Decision Making Medical decision making: Differential diagnosis including but not limited to and based on the above HPI, review of systems and physical exam: In this patient with abdominal distention and shortness of breath would have concern for pneumonia, she also appears jaundiced so I have concern for liver issues. Cirrhosis. With long and abdominal symptoms very broad approach was taken to workup. Orders placed to evaluate differential diagnosis based on the above differential, HPI and physical exam EKG: Time 1634. Rate 95. Normal sinus rhythm, No ST-T changes, no ectopy, normal DE & QRS intervals, This was reviewed and interpreted by myself the ER physician at 1636. Chest x-ray: There is a new mass in the right hilum with postobstructive pneumonia. This was reviewed and interpreted by myself the emergency room physician. I also reviewed the radiology report. Lab Review: Laboratory results were reviewed and interpreted by myself the emergency room physician. Significant leukocytosis. White count is 18,000. Lactate is elevated at 4.5. BUN is elevated at 46 with a normal creatinine at 0.8. AST and ALT are elevated around 200. T. bili is quite elevated at 9. CT of the chest abdomen pelvis: Interval development of a large right suprahilar mass extending into the mediastinum. Large conglomerate of lymph nodes. Mass completely obstructs the right upper lobe bronchus. Atelectasis and pneumonia. Moderate narrowing of the right upper lobe pulmonary artery. Marked hepatomegaly with numerous liver masses and cirrhotic changes. I spoke with the radiologist on-call about this. This was reviewed and interpreted by myself the emergency room physician. I also reviewed the radiology report. I reviewed the patient's medical record. 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 We discussed that likely she will need to be transferred to a hospital that has subspecialties such as pulmonology and possibly even gastroenterology. Work of breathing has improved. As long as she is at rest. She has received some pain medicine which has helped with her abdominal pain. Consultation: I spoke with Dr. Glynn who is on-call for the hospitalist service. Requesting consultation for medical management while the patient is being held here in the emergency room. Assessment and plan: Lung mass Postobstructive pneumonia Cirrhosis Hyperbilirubinemia Liver masses Edema ?Elevated white count and lactate so broad-spectrum antibiotics were given for pneumonia and possible early sepsis. I held off on fluids at this time. She is not hypotensive and she is not tachycardic. She also has extensive lower extremity swelling with weeping several extra fluids likely would be deleterious. Lactic and blood cultures were sent. ?Patient will need tertiary care and likely will need pulmonary/possible CV surgeons. Gastroenterology. Oncology. She is being transferred to [facility]. Ivy is on divert right now. Fatuma is on hold but she has been accepted and hopefully will be transferred tomorrow. ?Accepted to [facility] in [place] at [address] Daniel Talamantes - Discussed findings and plan with patient. Answered any questions. - All laboratory values were reviewed and interpreted personally by myself, the ER physician - All imaging was reviewed and interpreted personally by myself, the ER physician. - Evaluation and treatment of this problem were appropriate in the emergency setting Critical care -I spent a total of >35 minutes of critical care time managing the patient, independent of any other practitioner. -The time involved in the performance of separately reportable procedures was not counted towards critical care time. Lab Data 08/02/24 15:54 08/02/24 15:54 Labs/Radiology: Radiology Impressions Abdomen Ultrasound 08/02/24 16:12 IMPRESSION: 1. Marked hepatomegaly, the liver has increased in size. Interval development of a nodular contour of the liver with increasingly heterogenous echotexture throughout the liver, suspicious for cirrhotic changes. Echotexture may be due to fatty infiltration and/or hepatocellular disease. Underlying hepatic lesions can not be ruled out. Recommend clinical correlation. 2. Hepatopetal flow in the portal vein. Portal vein velocity measures 12.3 cm however, which is below normal. 3. The pancreas was not visualized due to overlying bowel gas. Chest X-Ray 08/02/24 16:13 IMPRESSION: 1. Interval development of a right suprahilar mass with associated postobstructive atelectasis/pneumonia in the right upper lobe. CT scan of the chest with contrast is recommended for further evaluation. 2. Incidental/nonacute findings are listed in the report. COMMENTS: Urgent results were discussed with DARYA Castelan on 08/02/2024 at 5:03 PM BONE COOKING OPERATOR. Chest/Abdomen/Pelvis CT 08/02/24 17:12 IMPRESSION: 1. Large right suprahilar mass extending into the mediastinum and contiguous with a large conglomerate pretracheal/precarinal lymph node mass. The mass completely obstructs the right upper lobe bronchus with extensive postobstructive atelectasis/pneumonia in the right upper lobe. The mass also moderately narrows the right upper lobe pulmonary artery. Additional enlarged lymph nodes in the superior mediastinum. The right and left brachiocephalic veins and superior vena cava and the trachea are mildly narrowed by the mass and enlarged lymph nodes. There are also enlarged right supraclavicular lymph nodes. 2. Increase in size of a ground-glass nodule in the left upper lobe. 3. Incidental/nonacute findings are listed in the report. IMPRESSION: 1. Marked hepatomegaly, the liver has increased in size. Interval development of cirrhotic changes in the liver and multiple lesions scattered throughout the liver. 2. Scattered diverticula in the sigmoid colon. No evidence for diverticulitis. 3. Mild body wall edema. 4. Incidental/nonacute findings are listed in the report. COMMENTS: Urgent results were discussed with DARYA Castelan on 08/02/2024 at 6:29 PM BONE COOKING OPERATOR. Laboratory Results WBC 18.27 10^3/uL (3.29-11.43) H 08/02/24 15:54 RBC 4.78 10^6/uL (3.85-5.65) 08/02/24 15:54 Hgb 12.60 g/dL (11.27-16.99) 08/02/24 15:54 Hct 39.2 % (36-47) 08/02/24 15:54 MCV 82.0 fl (85-98) L 08/02/24 15:54 MCH 26.4 pg (27-33) L 08/02/24 15:54 MCHC 32.1 g/dL (30-55) 08/02/24 15:54 RDW 24.3 % (12.1-15.1) H 08/02/24 15:54 Plt Count 166 10^3/cmm (157-399) 08/02/24 15:54 MPV 10.5 fL (7.4-10.4) H 08/02/24 15:54 Neut % (Auto) 91.1 % 08/02/24 15:54 Lymph % (Auto) 3.4 % 08/02/24 15:54 Tyrrell % (Auto) 3.4 % 08/02/24 15:54 Eos % (Auto) 0.0 % 08/02/24 15:54 Baso % (Auto) 0.1 % 08/02/24 15:54 Neut # (Auto) 16.62 10^3/uL (1.8-7.7) H 08/02/24 15:54 Lymph # (Auto) 0.6 10^3/uL (0.8-4.8) L 08/02/24 15:54 Tyrrell # (Auto) 0.6 10^3/uL (0.2-0.9) 08/02/24 15:54 Eos # (Auto) 0.0 10^3/uL (0.0-0.8) 08/02/24 15:54 Baso # (Auto) 0.0 10^3/uL (0.0-0.1) 08/02/24 15:54 Nucleated RBC % (auto) 0.3 % 08/02/24 15:54 Nucleated RBCs # 0.1 /100WBC 08/02/24 15:54 PT 14.40 SECONDS (12.1-14.9) 08/02/24 15:54 INR 1.05 (0.8-1.2) 08/02/24 15:54 APTT 30.0 SECONDS (23.9-36.7) 08/02/24 15:54 Sodium 133 mmol/L (136-145) L 08/02/24 15:54 Potassium 4.4 mmol/L (3.5-5.1) 08/02/24 15:54 Chloride 92 mmol/L (98-107) L 08/02/24 15:54 Carbon Dioxide 20 mmol/L (22-29) L 08/02/24 15:54 Anion Gap 25.4 (5-19) H 08/02/24 15:54 BUN 46 mg/dL (8-23) H 08/02/24 15:54 Creatinine 0.8 mg/dL (0.5-0.9) 08/02/24 15:54 GFR Calculation 71.8 mL/min (90-130) L 08/02/24 15:54 Glucose 128 mg/dL (65-115) H 08/02/24 15:54 Calculated Osmolality 290 mOsm/kg (285-295) 08/02/24 15:54 Lactic Acid 4.5 mmol/L (0.5-2.2) H* 08/02/24 15:54 Calcium 9.5 mg/dL (8.5-10.5) 08/02/24 15:54 Total Bilirubin 9.9 mg/dL (0.15-1.2) H* 08/02/24 15:54 AST 216 U/L (0-32) H 08/02/24 15:54 ALT 220 U/L (0-33) H 08/02/24 15:54 Alkaline Phosphatase 430 U/L (35-105) H 08/02/24 15:54 Ammonia 74 umol/L (11-51) H 08/02/24 15:54 Troponin T Baseline 25 ng/L (0-10) H 08/02/24 15:54 Troponin T 120 Minute 20.30 ng/L (0-10) H 08/02/24 17:55 Delta Troponin T -4.70 ABS# (0-10) L 08/02/24 17:55 NT-Pro-B Natriuret Pep 1082 pg/mL (0-125) H 08/02/24 15:54 Total Protein 6.1 g/dL (6.6-8.7) L 08/02/24 15:54 Albumin 3.8 g/dL (3.5-5.2) 08/02/24 15:54 Globulin 2.3 g/dL (1.3-4.6) 08/02/24 15:54 Lipase 58 U/L (13-60) 08/02/24 15:54 Urine Color Dark yellow (Yellow) A 08/02/24 17:06 Urine Appearance Cloudy (CLEAR) A 08/02/24 17:06 Urine pH 5.5 (5-7) 08/02/24 17:06 Ur Specific [place] 1.027 (1.005-1.030) 08/02/24 17:06 Urine Protein 2+ (Negative) A 08/02/24 17:06 Urine Glucose (UA) Negative (Normal) 08/02/24 17:06 Urine Ketones Negative (Negative) 08/02/24 17:06 Urine Blood Negative (Negative) 08/02/24 17:06 Urine Nitrate Positive (Negative) A 08/02/24 17:06 Urine Bilirubin 3+ (Negative) H 08/02/24 17:06 Urine Urobilinogen 1.0 mg/dL (Negative) 08/02/24 17:06 Ur Leukocyte Esterase 1+ (Negative) A 08/02/24 17:06 Urine RBC 11-20 /hpf (0-2) H 08/02/24 17:06 Urine WBC 6-10 /hpf (0-5) 08/02/24 17:06 Ur Squamous Epith Cells 6-10 /hpf (0-5) 08/02/24 17:06 Amorphous Sediment Not Reportable 08/02/24 17:06 Urine Bacteria 2+ /hpf (NONE) H 08/02/24 17:06 Hyaline Casts 10.73 /lpf 08/02/24 17:06 Hepatitis A IgM Ab Non-reactive (Nonreactive) 08/02/24 15:54 Hep Bs Antigen Non-reactive (Nonreactive) 08/02/24 15:54 Hep B Core IgM Ab Non-reactive (Nonreactive) 08/02/24 15:54 Hepatitis C Antibody Non-reactive (Nonreactive) 08/02/24 15:54 All radiology interpretation(s) finalized by discharge Discharge Plan Discharge Condition: Stable Prescriptions: No Action folic acid 1 mg tablet 1 mg PO DAILY Qty: 90 3RF methotrexate sodium 2.5 mg tablet See Rx Instructions PO Q7D Qty: 150 1RF Rx Instructions: take 10 tabs once weekly/every monday PO every 7 days; prednisone 20 mg tablet See Rx Instructions .ROUTE .COMPLEX Qty: 30 1RF Dose Instruction: TAKE 1 TABLET BY MOUTH EVERY DAY FOR 3-7 DAYS NEEDED FOR joint pain flare Rx Instructions: TAKE 1 TABLET BY MOUTH EVERY DAY FOR 3-7 DAYS NEEDED FOR joint pain flare melatonin 12 mg tablet 12 mg PO QPM acetaminophen [Tylenol Arthritis Pain] 650 mg tablet extended release 650 mg PO Q12H marijuana See Rx Instructions .ROUTE .COMPLEX Rx Instructions: orally (DME) director of guidance in public schools brace right See Rx Instructions .Route .MEDSUPPLY Qty: 1 0RF Rx Instructions: As directed Vitamin Plus Low Iron 27 mg iron- 1 mg tablet 1 tab PO DAILY Referrals: Krystyna Leal DO [Primary Care Provider] - Coding Level of Care Code ED Flow Machine Operator for Nilesh Ring
[2024-08-02 16:25] LABS: Basophils % 0.1 %; Hematocrit 39.2 % (36-47); Lymphocytes # 0.6 10^3/uL (0.8-4.8); Lymphocytes % 3.4 %; Mean Corpuscular HGB Conc 32.1 g/dL (30-55); Mean Corpuscular Hemoglobin 26.4 pg (27-33); Mean Platelet Volume 10.5 fL (7.4-10.4); Monocytes # 0.6 10^3/uL (0.2-0.9); Monocytes % 3.4 %; Neutrophils # 16.62 10^3/uL (1.8-7.7); Neutrophils % 91.1 %; Nucleated Red Blood Cells # 0.1 /100WBC; Nucleated Red Blood Cells % 0.3 %; Platelet Count 166 10^3/cmm (157-399); Red Blood Count 4.78 10^6/uL (3.85-5.65); Red Cell Distribution Width 24.3 % (12.1-15.1); White Blood Count 18.27 10^3/uL (3.29-11.43)
[2024-08-02 16:50] LABS: INR 1.05 (0.8-1.2)
[2024-08-02 16:51] LABS: Ammonia 74 umol/L (11-51); Troponin(5th) Baseline 25 ng/L (0-10)
[2024-08-02 16:58] VITALS: BP 160/85; PULSE 95; RESP 16; O2SAT 94
[2024-08-02 17:00] LABS: Lactic Sepsis W/Reflex 4.5 mmol/L (0.5-2.2)
[2024-08-02] MEDS: ondansetron 2 mg/ML SDV 2 mL 4 MG IVP ×2 (17:02→18:11)
[2024-08-02 17:07] LABS: Alanine Aminotransferase 220 U/L (0-33); Albumin Level 3.8 g/dL (3.5-5.2); Alkaline Phosphatase 430 U/L (35-105); Anion Gap 25.4 (5-19); Aspartate Amino Transferase 216 U/L (0-32); Blood Urea Nitrogen 46 mg/dL (8-23); Calcium 9.5 mg/dL (8.5-10.5); Carbon Dioxide 20 mmol/L (22-29); Chloride 92 mmol/L (98-107); Creatinine Clr Calc Pharmacy 77.5317; Globulin 2.3 g/dL (1.3-4.6); Glomerular Filtration Rate 71.8 mL/min (90-130); Glucose 128 mg/dL (65-115); Lipase 58 U/L (13-60); NT Pro B Type Natriuretic Pept 1082 pg/mL (0-125); Osmolality Calculated 290 mOsm/kg (285-295); Potassium 4.4 mmol/L (3.5-5.1); Sodium 133 mmol/L (136-145); Total Protein 6.1 g/dL (6.6-8.7)
[2024-08-02 17:10] LABS: Total Bilirubin 9.9 mg/dL (0.15-1.2)
[2024-08-02] MEDS: morphine 4 mg/mL SDV 1 mL 2 MG IVP (17:10)
[2024-08-02 17:12] LABS: Hepatitis A Antibody IgM Non-Reactive (Nonreactive); Hepatitis B Core IgM Non-Reactive (Nonreactive); Hepatitis B Surface Antigen Non-Reactive (Nonreactive); Hepatitis C Virus Antibody Non-Reactive (Nonreactive)
--- NOTE | 2024-08-02 17:12 | CTR_ITS ---
PROCEDURE INFORMATION: Exam: CT Chest With Contrast; Diagnostic Exam date and time: 08/02/2024 5:42 PM Age: 68 years old Clinical indication: Abnormal findings; Mass, lump, or swelling; Other parts of digestive tract; Lung mass or nodule; Not specified; Prior surgery; Surgery date: 6+ months; Surgery type: Hysterectomy; Additional info: Lung tumor TECHNIQUE: Imaging protocol: Diagnostic computed tomography of the chest with contrast. Sagittal and coronal reformatted images were also reviewed. Radiation optimization: All CT scans at this facility use at least one of these dose optimization techniques: automated exposure control; mA and/or kV adjustment per patient size (includes targeted exams where dose is matched to clinical indication); or iterative reconstruction. Contrast material: [id number]; Contrast volume: 100 ml; Contrast route: INTRAVENOUS (IV); COMPARISON: CT chest wo con [id number] 01/15/2024 3:06 PM RADIATION DOSE METRICS: Total DLP (mGy-cm): 1550.82 FINDINGS: Trachea: Tracheobronchial structures are patent. Lungs: Large right suprahilar mass extending into the mediastinum and contiguous with a large conglomerate pretracheal/precarinal lymph node mass. The mass completely obstructs the right upper lobe bronchus with extensive postobstructive atelectasis/pneumonia in the right upper lobe. The mass also moderately narrows the right upper lobe pulmonary artery. Determining the size of the mass is limited due to adjacent airspace disease, however the mass measures at least 6.7 x 7.8 x 10.1 cm (series 8, image 51 and series 4, image 20). Additional enlarged lymph nodes in the superior mediastinum measuring up to 2.2 x 4.2 cm (series 4, image 10). The right and left brachiocephalic veins and superior vena cava (series 4, images 15-22) and the trachea (series 4, image 9) are mildly narrowed by the mass and enlarged lymph nodes. There are also enlarged right supraclavicular lymph nodes measuring up to 1.7 cm in short axis (series 4, image 1). Increase in size of a ground-glass nodule in the left upper lobe that now measures 2.0 x 1.9 cm, previously measured 1.6 x 1.9 cm (series 4, image 15). Interval development of mild elevation of the right hemidiaphragm secondary to an enlarged liver resulting in mild mass effect on the right atrium (series 3, image 36). Pleural spaces: No pneumothorax. No pleural effusion. Heart: The heart is normal in size. Coronary arteries: Mild atherosclerotic calcification in the coronary arteries. Esophagus: The esophagus is unremarkable. Mediastinal space: No mediastinal hematoma. No pneumomediastinum. Lymph nodes: No lymphadenopathy. Vasculature: Mild atherosclerotic changes in the visualized arteries. Mild atherosclerotic changes in the visualized arteries. Bones/joints: Degenerative changes in the spine and shoulders. No lytic or sclerotic bony lesions. Soft tissues: The extrathoracic soft tissues are unremarkable. COMMENTS: Urgent results were discussed with DARYA Castelan on 08/02/2024 at 6:29 PM CASER IN. PROCEDURE INFORMATION: Exam: CT Abdomen And Pelvis With Contrast Exam date and time: 08/02/2024 5:42 PM Age: 68 years old Clinical indication: Abnormal findings; Mass, lump, or swelling; Other parts of digestive tract; Lung mass or nodule; Not specified; Prior surgery; Surgery date: 6+ months; Surgery type: Hysterectomy; Additional info: Lung tumor TECHNIQUE: Imaging protocol: Computed tomography of the abdomen and pelvis with contrast. Sagittal and coronal reformatted images were also reviewed. Radiation optimization: All CT scans at this facility use at least one of these dose optimization techniques: automated exposure control; mA and/or kV adjustment per patient size (includes targeted exams where dose is matched to clinical indication); or iterative reconstruction. Contrast material: [id number]; Contrast volume: 100 ml; Contrast route: INTRAVENOUS (IV); COMPARISON: abdomen limited [id number] 08/02/2024 4:39 PM RADIATION DOSE METRICS: Total DLP (mGy-cm): 1550.82 FINDINGS: Liver: Interval development of a mildly nodular contour of the liver. Marked enlargement of the liver. The liver has increased in size and now measures 31.4 cm in length, previously measured 22.1 cm (series 10, image 44). Interval development of multiple ill-defined low-density nodules scattered throughout the liver. The largest measures 4.9 x 3.4 cm (series 5, image 59). Gallbladder and biliary ducts: The gallbladder is contracted. This may be due to a postprandial state. No pericholecystic fluid. No biliary ductal dilatation. Pancreas: The pancreas is unremarkable. No pancreatic ductal dilatation. Spleen: Multiple calcified granulomas in the spleen. Adrenal glands: The right adrenal gland is unremarkable. 2.2 x 2.7 cm left adrenal nodule is stable compared with 07/10/2023 (series 5, image 40). Kidneys and ureters: The right kidney is unremarkable. Mild scarring in the left kidney. Two nonobstructing stones in the left kidney, the larger measures 3.0 mm (series 5, image 54). The right and left ureters are unremarkable. Stomach and bowel: Scattered diverticula in the sigmoid colon. No evidence for diverticulitis. No acute abnormality in the stomach, small bowel, or colon. Appendix: The appendix is visualized and is unremarkable. No findings to suggest acute appendicitis. Intraperitoneal space: No free intraperitoneal air. No ascites. No loculated fluid collections to suggest an abscess. Vasculature: Mild atherosclerotic changes in the visualized arteries. No evidence for aortic aneurysm or aortic dissection. Hepatic veins, portal veins, splenic vein, and SMV are patent. Lymph nodes: No lymphadenopathy. Urinary bladder: The bladder is unremarkable for the degree of distension. Reproductive: Patient has had a previous hysterectomy. The ovaries are not definitely visualized, not an expected in a postmenopausal female. This may be due to ovarian atrophy. Alternatively, the patient may have had a previous bilateral oophorectomy. Bones/joints: Multilevel degenerative changes of varying severity in the visualized spine. Mild degenerative changes at the right and left hips. Soft tissues: Mild body wall edema. CT/CT chest abdpel [id number] IMPRESSION: 1. Large right suprahilar mass extending into the mediastinum and contiguous with a large conglomerate pretracheal/precarinal lymph node mass. The mass completely obstructs the right upper lobe bronchus with extensive postobstructive atelectasis/pneumonia in the right upper lobe. The mass also moderately narrows the right upper lobe pulmonary artery. Additional enlarged lymph nodes in the superior mediastinum. The right and left brachiocephalic veins and superior vena cava and the trachea are mildly narrowed by the mass and enlarged lymph nodes. There are also enlarged right supraclavicular lymph nodes. 2. Increase in size of a ground-glass nodule in the left upper lobe. 3. Incidental/nonacute findings are listed in the report. IMPRESSION: 1. Marked hepatomegaly, the liver has increased in size. Interval development of cirrhotic changes in the liver and multiple lesions scattered throughout the liver. 2. Scattered diverticula in the sigmoid colon. No evidence for diverticulitis. 3. Mild body wall edema. 4. Incidental/nonacute findings are listed in the report. COMMENTS: Urgent results were discussed with DARYA Castelan on 08/02/2024 at 6:29 PM CASER IN.
[2024-08-02 17:28] LABS: Bilirubin Urine 3+ (Negative); Blood Urine Negative (Negative); Glucose Urine UA Negative (Normal); Ketones Urine Negative (Negative); Leukocyte Esterase Urine 1+ (Negative); Nitrate Urine Positive (Negative); Protein Urine 2+ (Negative); Specific Gravity, Urine 1.027 (1.005-1.030); Urine Appearance Cloudy (CLEAR); Urine Color Dark Yellow (Yellow); pH Urine 5.5 (5-7)
[2024-08-02 17:39] LABS: Bacteria Urine 2+ /hpf; Hyaline Casts Urine 10.73 /lpf
[2024-08-02 17:41] LABS: Add Urine Culture? Yes
[2024-08-02] MEDS: iohexol 350 mg/mL 500 mL Btl (per mL) IV (17:44)
[2024-08-02 17:47] LABS: Reflex Lactate Order REFLEX LACTIC ORDERD
[2024-08-02] MEDS: morphine 4 mg/mL SDV 1 mL IVP (18:12)
[2024-08-02] MEDS: cefepime 2,000 mg SDV 2000 MG IVP (18:14)
--- NOTE | 2024-08-02 18:14 | ECG_ITS ---
[facility]: 2024-[facility]02 Pat Name: So Florez Department: Room: Gender: Female Physical Therapist: : 1955 Requested By: Kimi Villagomez Order Number: [id number] Nettles MD: Beau Mcdonald M.D. Measurements Intervals [place] Rate: 90 P: 64 FL: 137 QRS: 40 QRSD: 92 T: 63 QT: 357 QTc: 438 Interpretive Statements SINUS RHYTHM Compared to ECG 08/02/2024 16:34:16 Short FL interval no longer present Electronically Signed On 08-03-2024 13:29:02 INFLATABLE BUILDINGS LAMINATOR by Beau Mcdonald M.D. [email or web address]
[2024-08-02 18:15] VITALS: BP 147/73; PULSE 91; RESP 16; O2SAT 93
[2024-08-02] MEDS: linezolid premix 600 MG/300 ML PREMIX 300 MG IV (18:41)
[2024-08-02 19:09] VITALS: BP 139/70; PULSE 92; RESP 16; O2SAT 93
--- NOTE | 2024-08-02 20:24 | PC.NURSE ---
Pt placed in hospital gown and hospital bed moved into room for comfort. Pt has paster from her christian at bedside.
[2024-08-02 22:31] LABS: Troponin 5 6HR 28.23 ng/L (0-10); Troponin 5 6HR Delta 3.23 ng/L (0-12)
[2024-08-02 22:42] VITALS: BP 153/86; PULSE 89; RESP 16; O2SAT 94
[2024-08-02] MEDS: HYDROmorphone 1 mg/mL INJ 1 mL 0.5 MG IVP (22:48)
[2024-08-02 22:51] LABS: Lactic Acid level (Lactate) 5.3 mmol/L (0.5-2.2)
--- NOTE | 2024-08-02 23:52 | P.CONIM_ITS ---
Providers/Reason For Consult 2 Consulting Physician/Specialty*: Hospitalist Reason for Consult*: Medical management while waiting for the bed assignment Primary Care Provider: Krystyna Leal DO History of Present Illness History of Present Illness So Florez is a 68 year old female with history of inflammatory arthritis, follows up with rheumatology, presented to the hospital with chief complaint of worsening shortness of breath and worsening of swelling. Patient stating that she lives alone. In the ER workup is consistent with lung mass with metastatic multiple liver lesions, patient has anasarca. Concern for postobstructive pneumonia. She has been put on antibiotics by the ER. Hospitalist was consulted for management while she is waiting for the transfer to [facility]. She has been accepted at [facility]. Accepted to [facility] in [place] at [address] Daniel Talamantes Patient is stating that she has never been diagnosed with any malignancy in the past, her previous colonoscopies and mammograms were unremarkable. She does not use oxygen at baseline. Not endorsing to alcohol or smoking, uses marijuana. Abdomen Ultrasound 08/02/24 16:12 IMPRESSION: 1. Marked hepatomegaly, the liver has increased in size. Interval development of a nodular contour of the liver with increasingly heterogenous echotexture throughout the liver, suspicious for cirrhotic changes. Echotexture may be due to fatty infiltration and/or hepatocellular disease. Underlying hepatic lesions can not be ruled out. Recommend clinical correlation. 2. Hepatopetal flow in the portal vein. Portal vein velocity measures 12.3 cm however, which is below normal. 3. The pancreas was not visualized due to overlying bowel gas. Chest X-Ray 08/02/24 16:13 IMPRESSION: 1. Interval development of a right suprahilar mass with associated postobstructive atelectasis/pneumonia in the right upper lobe. CT scan of the chest with contrast is recommended for further evaluation. 2. Incidental/nonacute findings are listed in the report. COMMENTS: Urgent results were discussed with DARYA Castelan on 08/02/2024 at 5:03 PM CIGAR MACHINE FEEDER. Chest/Abdomen/Pelvis CT 08/02/24 17:12 IMPRESSION: 1. Large right suprahilar mass extending into the mediastinum and contiguous with a large conglomerate pretracheal/precarinal lymph node mass. The mass completely obstructs the right upper lobe bronchus with extensive postobstructive atelectasis/pneumonia in the right upper lobe. The mass also moderately narrows the right upper lobe pulmonary artery. Additional enlarged lymph nodes in the superior mediastinum. The right and left brachiocephalic veins and superior vena cava and the trachea are mildly narrowed by the mass and enlarged lymph nodes. There are also enlarged right supraclavicular lymph nodes. 2. Increase in size of a ground-glass nodule in the left upper lobe. 3. Incidental/nonacute findings are listed in the report. IMPRESSION: 1. Marked hepatomegaly, the liver has increased in size. Interval development of cirrhotic changes in the liver and multiple lesions scattered throughout the liver. 2. Scattered diverticula in the sigmoid colon. No evidence for diverticulitis. 3. Mild body wall edema. 4. Incidental/nonacute findings are listed in the report. Review of Systems 2 Const: Reports: chills and change in weight Eyes: Denies: change in vision ENMT: Denies: throat pain Card: Reports: swelling of feet/ankles; Denies: chest pain Resp: Reports: dyspnea GI: Reports: nausea Musc: Reports: back pain Medications/Allergies Home Medications Medication Instructions Recorded Confirmed Last Taken Type acetaminophen 650 mg 650 mg PO Q12H 02/14/23 08/02/24 Unknown History tablet,extended release (Tylenol Arthritis Pain) marijuana See Rx Instructions .Route .COMPLEX 02/14/23 08/02/24 Unknown History melatonin 12 mg tablet 12 mg PO QPM 02/14/23 08/02/24 Unknown History video game maker brace right #1 ea 02/14/23 08/02/24 Unknown Rx folic acid 1 mg tablet 1 mg PO DAILY #90 tabs 07/25/24 08/02/24 Unknown Rx methotrexate sodium 2.5 mg tablet See Rx Instructions PO Q7D #150 07/25/24 08/02/24 Unknown Rx tabs prednisone 20 mg tablet See Rx Instructions .Route 07/25/24 08/02/24 Unknown Rx .COMPLEX #30 tabs vitamin with calcium 1 tab PO DAILY 08/02/24 08/02/24 Unknown History no.72-iron 27 mg-folic acid 1 mg tablet ( Vitamins Plus Low Iron) Allergies Allergy/AdvReac Type Severity Reaction Status Date / Time sulfasalazine Allergy Unknown lower Verified 07/25/24 10:40 extremity weakness PFSH Acute 2 PFSH: Medical History Essential hypertension controlled now no meds Osteoarthritis, generalized Immunization counseling High risk medication use Seropositive rheumatoid arthritis of multiple sites Surgical History H/O: hysterectomy Family History Other CAD (coronary artery disease) Cancer Diabetes Heart disease Hyperlipidemia Hypertension Lupus (systemic lupus erythematosus) Denies family history of Rheumatoid arthritis Chronic kidney disease (CKD) Social History Smoking and tobacco/nicotine status: former use of tobacco/nicotine Alcohol intake: never Vitals/I&O/Wt Last Vital Signs Temp 97.6 F 08/02/24 16:13 Pulse 89 08/02/24 22:42 Resp 16 08/02/24 22:42 BP 153/86 08/02/24 22:42 Pulse Ox 94 08/02/24 22:42 O2 Del Method Room Air 08/02/24 16:13 08/02/24 08/02/24 08/03/24 14:59 22:59 06:59 Intake Total 300 / 300 Balance 300 / 300 Weight last 48 hrs Weight 81.647 kg Physical Exam 2 Narrative: Patient has anasarca Hemodynamically stable Distended nontender abdomen Ascites Lower extremity 3+ edema Currently on room air Pleasant cooperative AOx4 No sign of hepatic encephalopathy S1, S2 Data 08/02/24 15:54 08/02/24 15:54 A&P Assessment and plan (1) Lung mass: (2) Metastatic carcinoma to liver: (3) Anasarca: (4) Postobstructive pneumonia: (5) Hepatomegaly: Plan Suprahilar mass with multiple liver lesion Concern related to stage IV lung cancer with metastatic liver lesions Lactic acid likely secondary to liver lesions Patient is afebrile no hypoperfusion noted Avoiding IV fluids patient has anasarca Will request AFP, CEA marker Start patient on IV Lasix for anasarca Start patient on broad-spectrum antibiotics for postobstructive pneumonia She is not requiring oxygen, afebrile Will use opioids along bowel regimen Patient has been accepted at [facility] She will need multidisciplinary approach including GI, oncology and pulmonary versus IR for biopsy I have counseled patient that she will need biopsy first, then staging, then prognostication, then treatment plan, I have also counseled patient that considering the fact she lives alone she should discuss medical DPOA, CODE STATUS with her family, patient is stating that her daughter is a traveling nurse, she would like to appoint her as medical DPOA, she is full code Patient was given opportunity to ask questions, Family not at the bedside at the time of my evaluation DVT prophylaxis: SCDs avoiding anticoagulating agent for now secondary to liver lesions I will put patient on lactulose as well, ammonia level 74 she does not have any active signs of confusion Consult Attestations 2 Medical Necessity Statement: Awaiting transfer to [facility] Diagnoses Lung mass R91.8 Metastatic carcinoma to liver C78.7 Anasarca R60.1 Postobstructive pneumonia J18.9 Hepatomegaly R16.0
[2024-08-03] VITALS (15 sets, daily range): BP systolic 131–148; BP diastolic 77–86; PULSE 76–95; RESP 14–22; O2SAT 92–96
[2024-08-03] MEDS: ipratropium-albuterol 3 mL Neb INHALATION (00:26)
[2024-08-03] MEDS: lactulose oral liq 20 gm/30 mL UDC PO ×3 (00:35→18:59)
[2024-08-03] MEDS: FUROsemide 10 mg/mL SDV 10mL 40 MG IVP ×2 (00:35→13:44)
[2024-08-03] MEDS: morphine 4 mg/mL SDV 1 mL 2 MG IVP ×2 (00:35→16:32)
[2024-08-03 00:45] LABS: Carcinoembryonic Antigen 9.9 ng/mL (0.0-4.7); Tumor Marker Alpha Fetoprotein 4.1 ng/mL (0-8.3)
[2024-08-03] MEDS: piperacillin-tazobactam 3.375 GM in sodium chloride 0.9% (plus) 50 ML IV ×3 (01:36→13:43)
[2024-08-03] MEDS: vancomycin 1,500 MG/300 ML PIGGYBACK 200 MG IV (02:30)
[2024-08-03 04:25] LABS: Basophils % 0.2 %; Eosinophils % 0.1 %; Hematocrit 37.3 % (36-47); Lymphocytes # 0.5 10^3/uL (0.8-4.8); Lymphocytes % 3.7 %; Mean Corpuscular HGB Conc 30.8 g/dL (30-55); Mean Corpuscular Hemoglobin 26.4 pg (27-33); Mean Corpuscular Volume 85.7 fl (85-98); Mean Platelet Volume 10.1 fL (7.4-10.4); Monocytes # 0.6 10^3/uL (0.2-0.9); Monocytes % 4.3 %; Neutrophils # 11.86 10^3/uL (1.8-7.7); Neutrophils % 89.5 %; Nucleated Red Blood Cells % 0 %; Platelet Count 134 10^3/cmm (157-399); Red Blood Count 4.35 10^6/uL (3.85-5.65); Red Cell Distribution Width 24.4 % (12.1-15.1); White Blood Count 13.24 10^3/uL (3.29-11.43)
[2024-08-03 04:31] LABS: Platelet Count 131 10^3/cmm (157-399)
[2024-08-03 04:42] LABS: Alanine Aminotransferase 194 U/L (0-33); Albumin Level 3.4 g/dL (3.5-5.2); Alkaline Phosphatase 376 U/L (35-105); Anion Gap 25.7 (5-19); Aspartate Amino Transferase 174 U/L (0-32); Blood Urea Nitrogen 48 mg/dL (8-23); Calcium 9.1 mg/dL (8.5-10.5); Carbon Dioxide 16 mmol/L (22-29); Chloride 90 mmol/L (98-107); Creatinine Clr Calc Pharmacy 47.7118; Globulin 2.1 g/dL (1.3-4.6); Glucose 173 mg/dL (65-115); Osmolality Calculated 283 mOsm/kg (285-295); Potassium 3.7 mmol/L (3.5-5.1); Sodium 128 mmol/L (136-145); Total Protein 5.5 g/dL (6.6-8.7)
[2024-08-03 04:46] LABS: Total Bilirubin 7.4 mg/dL (0.15-1.2)
[2024-08-03 04:55] LABS: INR 1.26 (0.8-1.2)
[2024-08-03 04:56] LABS: Partial Thromboplastin Time 31.7 SECONDS (23.9-36.7)
[2024-08-03 05:04] LABS: C Reactive Protein 27.3 mg/L (0.0-4.9); Magnesium 2.5 mg/dL (1.7-2.3)
[2024-08-03 05:24] LABS: Fibrinogen 204 mg/dL (174-498)
[2024-08-03] MEDS: ondansetron 2 mg/ML SDV 2 mL 4 MG IVP (07:52)
[2024-08-03] MEDS: pantoprazole 40 mg SDV IVP ×2 (08:13→19:00)
[2024-08-03] MEDS: sennosides-docusate Tablet 1 TAB PO (08:13)
--- NOTE | 2024-08-03 08:24 | W.ED.ABDPA2 ---
HPI - Abdominal Pain General: Chief Complaint: Abdominal Pain Stated Complaint: abdominal pain w/distention Time Seen by Provider: 08/02/24 16:08 History of Present Illness: Please see previous ED note from yesterday. The patient has abdominal pain back pain and chest pain which is persistent. The patient was diagnosed with a new lung mass. She is awaiting a bed for placement at [facility] in [place]. She is complaining of the same pain, not responding well to morphine. 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 brace right #1 ea 02/14/23 folic acid 1 mg tablet 1 mg PO DAILY #90 tabs 07/25/24 methotrexate sodium 2.5 mg tablet See Rx Instructions PO Q7D #150 07/25/24 tabs prednisone 20 mg tablet See Rx Instructions .Route 07/25/24 .COMPLEX #30 tabs Allergies Allergy/AdvReac Type Severity Reaction Status Date / Time sulfasalazine Allergy Unknown lower Verified 07/25/24 10:40 extremity weakness PFS ED PFSH: Medical History Essential hypertension controlled now no meds Osteoarthritis, generalized Immunization counseling High risk medication use Seropositive rheumatoid arthritis of multiple sites Surgical History H/O: hysterectomy Family History Other CAD (coronary artery disease) Cancer Diabetes Heart disease Hyperlipidemia Hypertension Lupus (systemic lupus erythematosus) Denies family history of Rheumatoid arthritis Chronic kidney disease (CKD) Social History Smoking and tobacco/nicotine status: former use of tobacco/nicotine Alcohol intake: never Physical Exam Narrative: EXAM NARRATIVE: Patient appears to be in no distress. She sitting up in chair beside the bed eating. No respiratory distress. Normal respiratory effort. Course Vital Signs: Vital signs: Vital Signs Temperature 97.6 F 08/02/24 16:13 Pulse Rate 81 08/03/24 14:33 Respiratory Rate 16 08/03/24 14:33 Blood Pressure 141/79 08/03/24 11:43 Pulse Oximetry 94 08/03/24 14:33 Oxygen Delivery Me thod Room Air 08/03/24 14:33 MDM - Abdominal Pain Medical Decision Making 68-year-old female, recently diagnosed lung mass, awaiting transfer to [facility] in [place]. Patient complaining of worsening pain. Will give her IV Dilaudid at this time. Discussed potential alternative options for placement, calling other facilities to see if that beds available. The patient does not want to go to any other facility besides [facility]. Lab Data 08/03/24 04:17 08/03/24 04:17 Labs/Radiology: Radiology Impressions Abdomen Ultrasound 08/02/24 16:12 IMPRESSION: 1. Marked hepatomegaly, the liver has increased in size. Interval development of a nodular contour of the liver with increasingly heterogenous echotexture throughout the liver, suspicious for cirrhotic changes. Echotexture may be due to fatty infiltration and/or hepatocellular disease. Underlying hepatic lesions can not be ruled out. Recommend clinical correlation. 2. Hepatopetal flow in the portal vein. Portal vein velocity measures 12.3 cm however, which is below normal. 3. The pancreas was not visualized due to overlying bowel gas. Chest X-Ray 08/02/24 16:13 IMPRESSION: 1. Interval development of a right suprahilar mass with associated postobstructive atelectasis/pneumonia in the right upper lobe. CT scan of the chest with contrast is recommended for further evaluation. 2. Incidental/nonacute findings are listed in the report. COMMENTS: Urgent results were discussed with DARYA Castelan on 08/02/2024 at 5:03 PM ALIGNING INSPECTOR. Chest/Abdomen/Pelvis CT 08/02/24 17:12 IMPRESSION: 1. Large right suprahilar mass extending into the mediastinum and contiguous with a large conglomerate pretracheal/precarinal lymph node mass. The mass completely obstructs the right upper lobe bronchus with extensive postobstructive atelectasis/pneumonia in the right upper lobe. The mass also moderately narrows the right upper lobe pulmonary artery. Additional enlarged lymph nodes in the superior mediastinum. The right and left brachiocephalic veins and superior vena cava and the trachea are mildly narrowed by the mass and enlarged lymph nodes. There are also enlarged right supraclavicular lymph nodes. 2. Increase in size of a ground-glass nodule in the left upper lobe. 3. Incidental/nonacute findings are listed in the report. IMPRESSION: 1. Marked hepatomegaly, the liver has increased in size. Interval development of cirrhotic changes in the liver and multiple lesions scattered throughout the liver. 2. Scattered diverticula in the sigmoid colon. No evidence for diverticulitis. 3. Mild body wall edema. 4. Incidental/nonacute findings are listed in the report. COMMENTS: Urgent results were discussed with DARYA Castelan on 08/02/2024 at 6:29 PM ALIGNING INSPECTOR. Laboratory Results WBC 13.24 10^3/uL (3.29-11.43) H 08/03/24 04:17 RBC 4.35 10^6/uL (3.85-5.65) 08/03/24 04:17 Hgb 11.50 g/dL (11.27-16.99) 08/03/24 04:17 Hct 37.3 % (36-47) 08/03/24 04:17 MCV 85.7 fl (85-98) 08/03/24 04:17 MCH 26.4 pg (27-33) L 08/03/24 04:17 MCHC 30.8 g/dL (30-55) 08/03/24 04:17 RDW 24.4 % (12.1-15.1) H 08/03/24 04:17 Plt Count 131 10^3/cmm (157-399) L 08/03/24 04:17 Plt Count 134 10^3/cmm (157-399) L 08/03/24 04:17 MPV 10.1 fL (7.4-10.4) 08/03/24 04:17 Neut % (Auto) 89.5 % 08/03/24 04:17 Lymph % (Auto) 3.7 % 08/03/24 04:17 [place] % (Auto) 4.3 % 08/03/24 04:17 Eos % (Auto) 0.1 % 08/03/24 04:17 Baso % (Auto) 0.2 % 08/03/24 04:17 Neut # (Auto) 11.86 10^3/uL (1.8-7.7) H 08/03/24 04:17 Lymph # (Auto) 0.5 10^3/uL (0.8-4.8) L 08/03/24 04:17 [place] # (Auto) 0.6 10^3/uL (0.2-0.9) 08/03/24 04:17 Eos # (Auto) 0.0 10^3/uL (0.0-0.8) 08/03/24 04:17 Baso # (Auto) 0.0 10^3/uL (0.0-0.1) 08/03/24 04:17 Nucleated RBC % (auto) 0 % 08/03/24 04:17 Nucleated RBCs # 0.0 /100WBC 08/03/24 04:17 PT 16.60 SECONDS (12.1-14.9) H 08/03/24 04:17 INR 1.26 (0.8-1.2) H 08/03/24 04:17 APTT 31.7 SECONDS (23.9-36.7) 08/03/24 04:17 Fibrinogen 204 mg/dL (174-498) 08/03/24 04:17 Sodium 128 mmol/L (136-145) L 08/03/24 04:17 Potassium 3.7 mmol/L (3.5-5.1) 08/03/24 04:17 Chloride 90 mmol/L (98-107) L 08/03/24 04:17 Carbon Dioxide 16 mmol/L (22-29) L 08/03/24 04:17 Anion Gap 25.7 (5-19) H 08/03/24 04:17 BUN 48 mg/dL (8-23) H 08/03/24 04:17 Creatinine 1.3 mg/dL (0.5-0.9) H 08/03/24 04:17 GFR Calculation 41.0 mL/min (90-130) L 08/03/24 04:17 Glucose 173 mg/dL (65-115) H 08/03/24 04:17 Calculated Osmolality 283 mOsm/kg (285-295) L 08/03/24 04:17 Lactic Acid 4.5 mmol/L (0.5-2.2) H* 08/02/24 15:54 Lactic Acid (Sepsis) 5.3 mmol/L (0.5-2.2) H* 08/02/24 21:54 Calcium 9.1 mg/dL (8.5-10.5) 08/03/24 04:17 Magnesium 2.5 mg/dL (1.7-2.3) H 08/03/24 04:17 Total Bilirubin 7.4 mg/dL (0.15-1.2) H* 08/03/24 04:17 AST 174 U/L (0-32) H 08/03/24 04:17 ALT 194 U/L (0-33) H 08/03/24 04:17 Alkaline Phosphatase 376 U/L (35-105) H 08/03/24 04:17 Ammonia 74 umol/L (11-51) H 08/02/24 15:54 Troponin T Baseline 25 ng/L (0-10) H 08/02/24 15:54 Troponin T 120 Minute 20.30 ng/L (0-10) H 08/02/24 17:55 Delta Troponin T -4.70 ABS# (0-10) L 08/02/24 17:55 Troponin T Hi Sens 6Hr 28.23 ng/L (0-10) H 08/02/24 21:54 Troponin T Hi Sens 6Hr Delta 3.23 ng/L (0-12) 08/02/24 21:54 C-Reactive Protein 27.3 mg/L (0.0-4.9) H 08/03/24 04:17 NT-Pro-B Natriuret Pep 1082 pg/mL (0-125) H 08/02/24 15:54 Total Protein 5.5 g/dL (6.6-8.7) L 08/03/24 04:17 Albumin 3.4 g/dL (3.5-5.2) L 08/03/24 04:17 Globulin 2.1 g/dL (1.3-4.6) 08/03/24 04:17 Lipase 58 U/L (13-60) 08/02/24 15:54 Tumor Marker AFP 4.1 ng/mL (0-8.3) 08/02/24 15:54 Carcinoembryonic Ag 9.9 ng/mL (0.0-4.7) H 08/02/24 15:54 Urine Color Dark yellow (Yellow) A 08/02/24 17:06 Urine Appearance Cloudy (CLEAR) A 08/02/24 17:06 Urine pH 5.5 (5-7) 08/02/24 17:06 Ur Specific [place] 1.027 (1.005-1.030) 08/02/24 17:06 Urine Protein 2+ (Negative) A 08/02/24 17:06 Urine Glucose (UA) Negative (Normal) 08/02/24 17:06 Urine Ketones Negative (Negative) 08/02/24 17:06 Urine Blood Negative (Negative) 08/02/24 17:06 Urine Nitrate Positive (Negative) A 08/02/24 17:06 Urine Bilirubin 3+ (Negative) H 08/02/24 17:06 Urine Urobilinogen 1.0 mg/dL (Negative) 08/02/24 17:06 Ur Leukocyte Esterase 1+ (Negative) A 08/02/24 17:06 Urine RBC 11-20 /hpf (0-2) H 08/02/24 17:06 Urine WBC 6-10 /hpf (0-5) 08/02/24 17:06 Ur Squamous Epith Cells 6-10 /hpf (0-5) 08/02/24 17:06 Amorphous Sediment Not Reportable 08/02/24 17:06 Urine Bacteria 2+ /hpf (NONE) H 08/02/24 17:06 Hyaline Casts 10.73 /lpf 08/02/24 17:06 Hepatitis A IgM Ab Non-reactive (Nonreactive) 08/02/24 15:54 Hep Bs Antigen Non-reactive (Nonreactive) 08/02/24 15:54 Hep B Core IgM Ab Non-reactive (Nonreactive) 08/02/24 15:54 Hepatitis C Antibody Non-reactive (Nonreactive) 08/02/24 15:54 All radiology interpretation(s) finalized by discharge Discharge Plan Discharge Patient Disposition: Xfer Short-Term Hosp Clinical Impression: Lung mass Condition: Stable Referrals: Krystyna Leal DO [Primary Care Provider] - Coding Level of Care Code ED Field Research Assistant for Chg Fwd
[2024-08-03] MEDS: HYDROmorphone 1 mg/mL INJ 1 mL 0.5 MG IVP (08:35)
--- NOTE | 2024-08-03 11:09 | PC.NURSE ---
this nurse assumed pt care at 1100 from VERÓNICA Roamn.
--- NOTE | 2024-08-03 17:12 | PHA.VACGOAL ---
Vancomycin Goal - Goal Vancomycin Goal:: 15-20 mg/L Vancomycin Indication:: Pneumonia - Therapy Day of therpy:: Day []of [] . Actual body weight (kg): 180 lb - Data Labs: WBC 13.24 10^3/uL (3.29-11.43) H 08/03/24 04:17 RBC 4.35 10^6/uL (3.85-5.65) 08/03/24 04:17 Hgb 11.50 g/dL (11.27-16.99) 08/03/24 04:17 Hct 37.3 % (36-47) 08/03/24 04:17 MCV 85.7 fl (85-98) 08/03/24 04:17 MCH 26.4 pg (27-33) L 08/03/24 04:17 MCHC 30.8 g/dL (30-55) 08/03/24 04:17 RDW 24.4 % (12.1-15.1) H 08/03/24 04:17 Sodium 128 mmol/L (136-145) L 08/03/24 04:17 Potassium 3.7 mmol/L (3.5-5.1) 08/03/24 04:17 Chloride 90 mmol/L (98-107) L 08/03/24 04:17 Carbon Dioxide 16 mmol/L (22-29) L 08/03/24 04:17 Anion Gap 25.7 (5-19) H 08/03/24 04:17 BUN 48 mg/dL (8-23) H 08/03/24 04:17 Creatinine 1.3 mg/dL (0.5-0.9) H 08/03/24 04:17 GFR Calculation 41.0 mL/min (90-130) L 08/03/24 04:17 Treatment plan:: new consult Regimen:: 1500 MG LOADING DOSE 750 MG Q12H
[2024-08-03] MEDS: morphine IR 15 mg Tablet PO (17:43)
[2024-08-03] MEDS: LORazepam 2 mg/mL INJ 1 mL 0.5 MG IVP (17:51)
[2024-08-03 18:35] LABS: Basophils % 0.1 %; Eosinophils % 0.1 %; Hematocrit 35.6 % (36-47); Lymphocytes # 0.4 10^3/uL (0.8-4.8); Lymphocytes % 3.8 %; Mean Corpuscular HGB Conc 31.7 g/dL (30-55); Mean Corpuscular Hemoglobin 26.5 pg (27-33); Mean Corpuscular Volume 83.6 fl (85-98); Mean Platelet Volume 9.4 fL (7.4-10.4); Monocytes # 0.5 10^3/uL (0.2-0.9); Monocytes % 4.4 %; Neutrophils # 10.25 10^3/uL (1.8-7.7); Neutrophils % 88.8 %; Nucleated Red Blood Cells % 0 %; Platelet Count 123 10^3/cmm (157-399); Red Blood Count 4.26 10^6/uL (3.85-5.65); Red Cell Distribution Width 23.9 % (12.1-15.1); White Blood Count 11.54 10^3/uL (3.29-11.43)
[2024-08-03 18:51] LABS: Alanine Aminotransferase 181 U/L (0-33); Albumin Level 3.5 g/dL (3.5-5.2); Alkaline Phosphatase 320 U/L (35-105); Anion Gap 23.9 (5-19); Aspartate Amino Transferase 159 U/L (0-32); Blood Urea Nitrogen 55 mg/dL (8-23); Calcium 9.5 mg/dL (8.5-10.5); Carbon Dioxide 17 mmol/L (22-29); Chloride 89 mmol/L (98-107); Creatinine Clr Calc Pharmacy 41.3502; Globulin 2.3 g/dL (1.3-4.6); Glomerular Filtration Rate 34.7 mL/min (90-130); Glucose 108 mg/dL (65-115); Osmolality Calculated 278 mOsm/kg (285-295); Potassium 3.9 mmol/L (3.5-5.1); Sodium 126 mmol/L (136-145); Total Bilirubin 6.5 mg/dL (0.15-1.2); Total Protein 5.8 g/dL (6.6-8.7)
[2024-08-03 18:52] LABS: Lactic Sepsis W/Reflex 3.8 mmol/L (0.5-2.2)
[2024-08-03] MEDS: VANCOMYCIN ADD-Vantage 750 MG in 0.9% NaCl ADD-Vantage 250 ML 250 MG IV (19:02)
[2024-08-03 19:05] LABS: Reflex Lactate Order REFLEX LACTIC ORDERD
[2024-08-03 21:58] LABS: Lactic Acid level (Lactate) 3.1 mmol/L (0.5-2.2)
== END 2024-08-03 21:50 | disposition short-term general hospital (02) ==
PROVIDERS: Emergency Medicine; Internal Medicine; Emergency Provider Emergency Medicine; PCP Family Medicine
DX: R91.8 Other nonspecific abnormal finding of lung field (principal); I10 Essential (primary) hypertension; Z87.891 Personal history of nicotine dependence
CPT/HCPCS: 36415; 71045; 71260; 74177; 76705; 80053; 80074; 81001; 82105; 82140; 82378; 83605; 83690; 83735; 83880; 84484; 85025; 85049; 85384; 85610; 85730; 86140; 87086; 93005; 94640; 96365; 96366; 96367; 96375; 96376; 99285; J0692; J1171; J1940; J2020; J2060; J2270; J2405; J2470; J2543; J3370; J7050